=== PATIENT | female | born 1965 | race Two or more races ===

== ENCOUNTER 2018-08-13 06:53 | Day surgery (SDC) | payer MEDICARE, MEDICAID ==
[~2018-08-13] VITALS: Ht 157.5 cm; Wt 59.0 kg
[~2018-08-13 06:53] MED LIST: CHOL400T10 PO; CLON0.1T PO; FAMO20TA7 PO; LORA10TA3 PO; METF500T17 PO; METO25TA35 PO; MYCO360T PO; NIFE30TA13 PO; PRED5TAB PO; TACR1CAP4 PO
[2018-08-13] MEDS ORDERED: SILVER SULF. CRM 1% , 25GM ONE (07:02)
[2018-08-13] MEDS ORDERED: EPINEPHRINE 1 MG/ML, 1ML ONE (07:02)
[2018-08-13] MEDS ORDERED: BUPIVACAINE 0.25% ONE (07:02)
[2018-08-13] MEDS ORDERED: LACTATED RINGERS 1,000 ML IV SCH (07:38)
[2018-08-13 07:39] VITALS: BP 133/80
[2018-08-13] MEDS ORDERED: ONDANSETRON ODT 8 MG PO ONE (08:00)
[2018-08-13] MEDS ORDERED: ACETAMINOPHEN 500 MG TABLET PO ONE (08:00)
[2018-08-13] MEDS ORDERED: LIDOCAINE-MPF 2% ,5ML ONE (08:22)
[2018-08-13] MEDS ORDERED: FENTANYL PF 100 MCG/2ML ONE (08:22)
[2018-08-13] MEDS ORDERED: DEXAMETHASONE 4 MG/ML, 1ML ONE ×2 (08:22)
[2018-08-13] MEDS ORDERED: MIDAZOLAM 1 MG/ML, 2ML ONE (08:22)
[2018-08-13] MEDS ORDERED: PROPOFOL 10 MG/ML, 20ML ONE (08:22)
[2018-08-13] MEDS ORDERED: SUCCINYLCHOLINE 20 MG/ML, 10ML ONE (08:23)
[2018-08-13] MEDS ORDERED: ROCURONIUM 10MG/ML,5ML ONE (09:12)
[2018-08-13] MEDS ORDERED: MORPHINE SULFATE 4 MG/ML, 1ML IVPush PRN (09:30)
[2018-08-13] MEDS ORDERED: OXYcodone 5 MG/5 ML ORAL.SOL UDC PO PRN (09:30)
[2018-08-13] MEDS ORDERED: SCOPOLAMINE PATCH, 1.5MG PATCH.TD72 TD PRN (09:30)
[2018-08-13] MEDS ORDERED: LABETALOL 5MG/ML, 20ML IV PRN (09:30)
[2018-08-13] MEDS ORDERED: LORazepam 2 MG/ML, 1ML IVPush PRN (09:30)
[2018-08-13] MEDS ORDERED: DIAZEPAM 5 MG/ML, 2ML IVPush PRN (09:30)
[2018-08-13] MEDS ORDERED: MEPERIDINE/PF 25MG/0.5ML IVPush PRN (09:30)
[2018-08-13] MEDS ORDERED: ALBUTEROL/IPRATROPIUM 2.5MG/0.5MG, 3 ML NPPB PRN (09:30)
[2018-08-13] MEDS ORDERED: FENTANYL PF 100 MCG/2ML IV PRN (09:30)
[2018-08-13] MEDS ORDERED: HYDROmorphone 1 MG/ML, 1ML IV PRN (09:30)
[2018-08-13] MEDS ORDERED: hydrALAzine 20 MG/ML, 1ML IV PRN (09:30)
[2018-08-13] MEDS ORDERED: METOCLOPRAMIDE 5 MG/ML, 2ML IV PRN (09:30)
== END 2018-08-13 12:40 | disposition home or self-care (01) ==
LOC: OR 06:53
PROVIDERS: ATTEND Specialist
DX: N90.3 Dysplasia of vulva, unspecified (principal); D64.9 Anemia, unspecified; E11.9 Type 2 diabetes mellitus without complications; K21.9 Gastro-esophageal reflux disease without esophagitis; I10 Essential (primary) hypertension; Z94.0 Kidney transplant status; Z90.710 Acquired absence of both cervix and uterus; Z98.890 Other specified postprocedural states; Z88.5 Allergy status to narcotic agent; Z88.8 Allergy status to other drugs, medicaments and biological substances; Z79.899 Other long term (current) drug therapy
CPT/HCPCS: 57421; 82962; 93005; J0330; J1100; J2250; J2704; J3010; J3490; J7120; Q0162; J0171

== ENCOUNTER 2018-09-03 05:34 | Day surgery (SDC) | payer MEDICARE, MEDICAID ==
[~2018-09-03] VITALS: Ht 157.5 cm; Wt 59.0 kg
[~2018-09-03 05:34] MED LIST changes: -CLON0.1T PO; +CLON0.1T22 PO
[2018-09-03] MEDS ORDERED: LACTATED RINGERS 1,000 ML IV SCH (06:08)
[2018-09-03 06:14] VITALS: BP 114/79
[2018-09-03] MEDS ORDERED: SODIUM CHLORIDE 0.9% 1,000 ML IV SCH (07:02)
[2018-09-03 07:03] LABS: BASOPHILS # (AUTO) 0.01 x10^3/uL (0-0.1); BASOPHILS % (AUTO) 0 % (0-1); EOSINOPHILS % (AUTO) 2 % (1-7); LYMPHOCYTES # (AUTO) 1.02 x10^3/uL (1-3.4); LYMPHOCYTES % (AUTO) 17 % (22-44); MD NO; MEAN CORPUSCULAR HGB CONC 33.4 g/dL (32.4-35.8); MEAN CORPUSCULAR VOLUME 89.8 fL (80-100); MONOCYTES # (AUTO) 0.81 x10^3/uL (0.2-0.8); MONOCYTES % (AUTO) 14 % (2-9); NEUTROPHILS # (AUTO) 4.02 x10^3/uL (1.8-6.8); NEUTROPHILS % (AUTO) 68 % (42-75); PLATELET COUNT 267 x10^3/uL (130-400); RED BLOOD COUNT 4.23 x10^6/uL (3.82-5.3); RED CELL DISTRIBUTION WIDTH 14.4 % (9.6-15.2)
[2018-09-03] MEDS ORDERED: MIDAZOLAM 1 MG/ML, 2ML ONE (07:10)
[2018-09-03] MEDS ORDERED: FENTANYL PF 100 MCG/2ML ONE ×2 (07:10→08:52)
[2018-09-03 07:14] LABS: ALANINE AMINOTRANSFERASE 30 U/L (12-78); ANION GAP 9 mmol/L (5-15); CALCIUM 8.6 mg/dL (8.5-10.1); CHLORIDE 111 mmol/L (98-107); CREATININE 0.77 mg/dL (0.55-1.02)
[2018-09-03 07:15] LABS: INTERNATIONAL NORMALIZED RATIO 0.95 (0.93-1.1); PROTHROMBIN TIME 10.1 Seconds (9.6-11.5)
[2018-09-03 07:16] LABS: ALKALINE PHOSPHATASE 73 U/L (45-117); BILIRUBIN,TOTAL 0.2 mg/dL (0.2-1.0); TOTAL PROTEIN 7.2 g/dL (6.4-8.2)
[2018-09-03] MEDS ORDERED: FENTANYL PF 250 MCG/5ML ONE (08:02)
[2018-09-03] MEDS ORDERED: PROPOFOL 10 MG/ML, 20ML ONE (08:02)
[2018-09-03] MEDS ORDERED: GLYCOPYRROLATE 0.2MG/1ML, 5ML ONE (08:02)
[2018-09-03] MEDS ORDERED: NEOSTIGMINE 1 MG/ML, 10ML ONE (08:02)
[2018-09-03] MEDS ORDERED: ROCURONIUM 10MG/ML,5ML ONE (08:02)
[2018-09-03] MEDS ORDERED: ONDANSETRON 2MG/ML, 2ML ONE (08:02)
[2018-09-03] MEDS ORDERED: DEXAMETHASONE 4 MG/ML, 1ML ONE (08:02)
[2018-09-03] MEDS ORDERED: SUCCINYLCHOLINE 20 MG/ML, 10ML ONE (08:02)
[2018-09-03] MEDS ORDERED: OXYcodone 5 MG/5 ML ORAL.SOL UDC ONE (08:52)
[2018-09-03] MEDS ORDERED: PROMETHAZINE 25 MG/ML, 1ML IV PRN (09:00)
[2018-09-03] MEDS ORDERED: FENTANYL PF 100 MCG/2ML IV PRN (09:00)
[2018-09-03] MEDS ORDERED: MEPERIDINE/PF 25MG/0.5ML IVPush PRN (09:00)
[2018-09-03] MEDS ORDERED: OXYcodone 5 MG/5 ML ORAL.SOL UDC PO PRN (09:00)
[2018-09-03] MEDS ORDERED: HYDROmorphone 2 MG/ML, 1ML IVPush PRN (09:00)
== END 2018-09-03 11:45 | disposition home or self-care (01) ==
LOC: OUT 05:34
PROVIDERS: ATTEND Specialist
DX: N89.1 Moderate vaginal dysplasia (principal); D64.9 Anemia, unspecified; E11.9 Type 2 diabetes mellitus without complications; K21.9 Gastro-esophageal reflux disease without esophagitis; I10 Essential (primary) hypertension; Z79.01 Long term (current) use of anticoagulants; Z79.899 Other long term (current) drug therapy; Z94.0 Kidney transplant status; Z90.710 Acquired absence of both cervix and uterus; Z98.890 Other specified postprocedural states
CPT/HCPCS: 36415; 57061; 80053; 82962; 85025; 85610; 85730; J0330; J1100; J2250; J2405; J2704; J2710; J3010; J3490; J7030